=== PATIENT | male | born 2005 | race Two or more races ===

== ENCOUNTER 2025-01-29 18:25 | Emergency (ER) | payer OTHER ==
[~2025-01-29] VITALS: Ht 177.8 cm; Wt 124.0 kg
[2025-01-29 18:26] VITALS: BP 155/98; PULSE 88; RESP 15; TEMP 99.3; O2SAT 99
== END 2025-01-29 20:53 | disposition left against medical advice (07) ==
LOC: ER 18:25
DX: S91.322A Laceration with foreign body, left foot, initial encounter (principal); Z53.21 Procedure and treatment not carried out due to patient leaving prior to being seen by health care provider; W25.XXXA Contact with sharp glass, initial encounter; Y93.89 Activity, other specified; Y92.89 Other specified places as the place of occurrence of the external cause; Y99.8 Other external cause status